=== PATIENT | female | born 1995 | race Hispanic/Latino ===

== ENCOUNTER 2020-10-22 08:52 | Inpatient (IN) | payer BC ==
[~2020-10-22] VITALS: Ht 162.6 cm; Wt 122.0 kg
[~2020-10-22 08:52] MED LIST: NORCO 5-325 TA1 EACH PO; PRENACARE TABL1 EACH PO
--- NOTE | 2020-10-23 10:42 | NUR ---
10/23/20 1042 Brittney Jennings 1035- PT ARRIVES TO [facility] ROOM #104. PT REPORTS NO PAIN OR NAUSEA. PT'S AT THE BEDSIDE, BED RAILS UP X2, CALL LIGHT PROVIDED. BED PLUGGED IN. 18G IV IN THE LEFT HAND IS INFUSING WELL WITH LR AND 30 UNITS OF PITOCIN.
--- NOTE | 2020-10-24 12:42 | PR ---
[facility] [address] [place] [address] Signed PP Progress Notes Datetime Report Generated by CPN: 10/24/2020 12:42 SUBJECTIVE: [id number] Pain: Within Normal Limits Nausea/Vomiting: Denies Vital Signs: [id number] Vital Signs: Reviewed; Within Normal Limits Notable Details: PP Hgb/Hct = 9.2/28.8 Abdomen/Uterus: Normal Lochia: Normal Extremities: Normal Incision: Normal IMPRESSION/PLAN/PROCEDURES: [id number] Impression: Normal Progression Other Impression: PP Anemia Plan: Continue Present Management Procedures: None Progress Notes: Doing well, without complaint, tolerating food well. Signing Physician: Itzel Morris MD Copies: ~ *Electronically Signed* 10/24/20 1242 ITZEL MORRIS MD PATIENT NAME: BENI JANG PROGRESS NOTE DATE OF : [birth year] PHYSICIAN: ITZEL MORRIS MD RPT #: [id number] REPORT IS CONFIDENTIAL AND NOT TO BE RELEASED WITHOUT AUTHORIZATION
--- NOTE | 2020-10-24 12:45 | OR ---
[facility] [address] [facility] [place] [address] Signed DATE OF OPERATION: 10/23/2020 SURGEON: Richard Rodriguez MD Patient of Dr. Rodriguez. PREOPERATIVE DIAGNOSES: macrosomia, maternal obesity, unengaged vertex and term . POSTOPERATIVE DIAGNOSES: macrosomia, maternal obesity, unengaged vertex and term . PROCEDURE: Primary low transverse segment section, delivery of live male . BEZEL CUTTER: Dr. Sanchez. ANESTHESIA: Spinal. ESTIMATED BLOOD LOSS: 700 mL. COMPLICATIONS: None. DRAINS: Wells to bladder. FINDINGS: Live male , Apgars 9 and 9. Weight 9 pounds 8 ounces. Normal uterus, normal tubes and ovaries bilateral. DESCRIPTION OF PROCEDURE: The patient was brought into the operating room, placed supine position. After adequate spinal anesthesia was obtained, she was prepped and draped in usual sterile fashion. Pfannenstiel skin incision was made with a scalpel and extended through the subcutaneous tissue with the scalpel and Bovie. The fascia was nicked with scalpel and extended in transverse fashion using curved scissors. The underlying abdominal musculature was Electronically Signed By: RICHARD RODRIGUEZ MD 10/24/20 1245 PATIENT NAME: BENI JANG OPERATIVE REPORT DATE OF : [birth year] REPORT #: [id number] PHYSICIAN: RICHARD RODRIGUEZ MD PCP: NO PRIMARY CARE PHYSICIAN REPORT IS CONFIDENTIAL AND NOT TO BE RELEASED WITHOUT AUTHORIZATION [facility] [address] [place], [place] [address] Signed bluntly and sharply from the fascia above and below the incision. The abdominal musculature was bluntly along the midline. The peritoneum was grasped with hemostats, elevated, nicked with curved scissors and extended in vertical fashion using curved scissors. The Virgilio self-retaining retractor was inserted into the incision and tightened in place. The lower uterine segment was carefully nicked with scalpel and extended in transverse fashion using finger dissection. The infant was noted to be in the vertex LOP presentation. The infant head was easily delivered from the incision. The rest of the was easily delivered from the incision and cord doubly clamped and cut and the passed off the table in good condition to awaiting nurse. The placenta was manually removed. The uterine cavity explored with a lap pad to remove any retained membranes. An angle stitch of 0 Monocryl was placed at one in the incision and a running locking stitch of 0-Monocryl starting at the other end used to close the incision. A 2nd running stitch of 0 Monocryl was used to imbricate the 1st layer. There was still some bleeding at the right angle, so finger was placed behind the broad ligament to make sure no bowel or pelvic structures were caught within the stitch and a zmkeun-vl-vzyhq stitch of 0 Monocryl placed at this angle. There was still small amount of bleeding, so the 2nd fpjfhm-yr-yfffa stitch was placed on the same area. This did control the bleeding. The entire pelvis was irrigated, suctioned, and examined, and any bleeding spots cauterized with the Bovie. At this point, all instruments were removed and the Virgilio self-retaining retractor removed. The lower uterine segment was sprinkled with Tony and then a sheet of ACell placed over the lower uterine segment to help with healing. Good hemostasis was noted. The anterior wall peritoneum was then closed using running stitch of 2-0 Vicryl suture. The abdominal musculature was reapproximated using interrupted stitches of 0 Vicryl suture. The abdominal wall incision was then irrigated, suctioned, and examined, and any bleeding spots cauterized with Bovie. Powdered ACell sprinkled over the abdominal musculature to help with healing and then the fascia closed using two running stitch of 0 Vicryl suture meeting in the midline. Subcutaneous tissue was irrigated, suctioned, and examined, and any bleeding spots cauterized with Bovie. The remaining Tony was sprinkled over the subcutaneous tissue to help with any bleeding and then the subcutaneous tissue closed using interrupted stitches of 3-0 Vicryl suture. The skin was reapproximated using skin clips. The patient tolerated the procedure well, went to recovery room in good condition. Sponge, needle, and instrument count were correct at the end of the procedure. MD CORINE Pulido/MODL Electronically Signed By: RICHARD RODRIGUEZ MD 10/24/20 1245 PATIENT NAME: BENI JANG OPERATIVE REPORT DATE OF : [birth year] REPORT #: [id number] PHYSICIAN: RICHARD RODRIGUEZ MD PCP: NO PRIMARY CARE PHYSICIAN REPORT IS CONFIDENTIAL AND NOT TO BE RELEASED WITHOUT AUTHORIZATION [address] [address] Signed /[id number] Copies: ~ Electronically Signed By: RICHARD RODRIGUEZ MD 10/24/20 1245 PATIENT NAME: BENI JANG OPERATIVE REPORT DATE OF : [birth year] REPORT #: [id number] PHYSICIAN: RICHARD RODRIGUEZ MD PCP: NO PRIMARY CARE PHYSICIAN REPORT IS CONFIDENTIAL AND NOT TO BE RELEASED WITHOUT AUTHORIZATION
--- NOTE | 2020-10-25 12:11 | PR ---
[facility] [address] [place] [address] Signed PP Progress Notes Datetime Report Generated by CPN: 10/25/2020 12:11 SUBJECTIVE: [id number] Pain: Within Normal Limits Nausea/Vomiting: Denies Vital Signs: [id number] Vital Signs: Reviewed; Within Normal Limits Notable Details: PP Hgb/Hct = 9.2/28.8 Abdomen/Uterus: Normal Lochia: Normal Extremities: Normal Incision: Normal IMPRESSION/PLAN/PROCEDURES: [id number] Impression: Normal Progression Other Impression: PP Anemia Plan: Discharge Procedures: None Progress Notes: Doing well, without complaint, ready to go home. Signing Physician: Itzel Morris MD Copies: ~ *Electronically Signed* 10/25/20 1211 ITZEL MORRIS MD PATIENT NAME: BENI JANG PROGRESS NOTE DATE OF : [birth year] PHYSICIAN: ITZEL MORRIS MD RPT #: [id number] REPORT IS CONFIDENTIAL AND NOT TO BE RELEASED WITHOUT AUTHORIZATION
== END 2020-10-25 12:50 | disposition home or self-care (01) | DRG 788 ==
LOC: FBC 10-23 07:09
PROVIDERS: ADMIT General Practice; ATTEND General Practice
PROC: 10D00Z1 Extraction of Products of Conception, Low, Open Approach (ICD-10-PCS; principal; 2020-10-23 09:30)
DX: O36.63X0 Maternal care for excessive fetal growth, third trimester, not applicable or unspecified (principal); Z37.0 Single live birth; O99.214 Obesity complicating childbirth; E66.9 Obesity, unspecified; O90.81 Anemia of the puerperium; D64.9 Anemia, unspecified; O99.824 Streptococcus B carrier state complicating childbirth; O28.2 Abnormal cytological finding on antenatal screening of mother; Z3A.39 39 weeks gestation of pregnancy; Z86.19 Personal history of other infectious and parasitic diseases; Z88.8 Allergy status to other drugs, medicaments and biological substances
CPT/HCPCS: 01961; 85027; A9270; J0690; J1644; J2001; J2274; J2405; J2550; J2590; J7121

== ENCOUNTER 2023-03-02 17:39 | Emergency (ER) | payer BC ==
[~2023-03-02] VITALS: Ht 152.4 cm; Wt 122.0 kg
[2023-03-02] MEDS ORDERED: CEPHALEXIN500 M1 PO (18:07)
[2023-03-02 18:14] VITALS: BP 114/63
== END 2023-03-02 18:16 | disposition home or self-care (01) ==
LOC: ED 17:39
DX: L73.1 Pseudofolliculitis barbae (principal); L02.214 Cutaneous abscess of groin; Z88.8 Allergy status to other drugs, medicaments and biological substances
CPT/HCPCS: 99282; A9270